=== PATIENT | male | born 1980 | race Caucasian/White ===

== ENCOUNTER 2024-12-29 13:21 | Emergency (ER) | payer OTHER, SELFPAY ==
--- NOTE | ~2024-12-29 | XR_ITS ---
EXAMINATION: XR HAND 3 OR MORE VIEWS LEFT HISTORY: Multiple foreign bodies COMPARISON: There are no prior studies available for comparison. FINDINGS: Three views of the left hand are submitted. Osseous mineralization is normal. There is no fracture or dislocation. The joint spaces are preserved. A faint punctate foreign body is seen within the soft tissues of the index finger at the level of the neck of the proximal phalanx. XR/XR hand LT min 3V IMPRESSION: Faint punctate foreign body in the soft tissues of the index finger at the level of the neck of the proximal phalanx. Electronically signed by: Mello Velazquez MD 12/29/2024 02:44 PM EDT
--- NOTE | 2024-12-29 13:29 | ED.SKABFB ---
HPI - Skin/Abscess/Foreign Bdy General Chief complaint: Wound/Laceration Stated complaint: L Hand Splinters Time Seen by Provider: 12/29/24 21:49 Source: patient Mode of arrival: ambulatory Limitations: no limitations History of Present Illness ED Provider: HPI narrative: Patient complaining of splinter in his left hand happened earlier today when he was working on the alex[employer] patient has remote to of the splinter but 1 still unable to remove Related Data Previous Rx's ?Medication ?Instructions ?Recorded amoxicillin 875 mg-potassium 1 tab PO BID #20 tabs 12/29/24 clavulanate 125 mg tablet Allergies Allergy/AdvReac Type Severity Reaction Status Date / Time oak Allergy Unknown Verified 12/29/24 13:32 holly Allergy Unknown Verified 12/29/24 13:32 thyme Allergy Unknown Verified 12/29/24 13:32 Review of Systems Review of Systems: Yes all other systems are reviewed and are negative PMFSH Social History Social History Advance Directives: No Advance Directives Information Provided: No Do you have a plan to hurt others: No Plan Physical Exam Vital Signs: Vital Signs: Last Vital Signs Temp 98.5 F 12/29/24 22:29 Pulse 90 12/29/24 22:29 Resp 20 12/29/24 22:29 BP 180/88 H 12/29/24 22:29 Pulse Ox 98 12/29/24 22:29 O2 Del Method Room Air 12/29/24 22:29 BMI result Body Mass Index 36.5 Appearance: Alert. Oriented X3. No acute distress. Eyes: no pallor or icterus ENT: Pharynx normal. Oral Mucosa moist Neck: Normal inspection. Neck supple. CVS: Normal heart rate and rhythm. Pulses normal. Respiratory: No respiratory distress. Equal air entry bilateral, no wheezing/rales/rhonchi Abd: soft, not tender Skin: Skin warm and dry. Normal skin color. Normal skin turgor. Extremities: Left hand at the base of thumb punctate wound with splinter inside Neuro: Oriented X 3. Course Course Course Narrative: This is an RME: Additional HPI, ROS, PE not included below will be deferred to primary provider. RME assessment and note performed by: Ayesha Romano PA-C This is a 89-[id number]-male, hx of HTN, who presents to the Er with complaints of L hand foreign body. Was building a deck, passing up a piece of lumbar and has multiple pressure treated wooden splinters in his left hand. He has multiple FBs in his left hand. Unsure of tdap status. Plan: xray, tdap Medications Administered Discontinued Medications Generic Name Dose Route Start Last Admin Trade Name Freq PRN Reason Stop Dose Admin Amoxicillin/Clavulanate Potassium 875 mg 12/29/24 22:17 12/29/24 22:23 Amoxicillin/Potassium Clav 875 Mg Tablet PO 12/29/24 22:18 875 mg ONCE ONE Administration Bacitracin 1 appl 12/29/24 22:17 12/29/24 22:23 Bacitracin Oint 0.9 Gm Packet TOPICAL 12/29/24 22:18 1 appl ONCE ONE Administration Protocol Diphtheria/Tetanus/Acell Pertussis 0.5 ml 12/29/24 13:32 12/29/24 20:52 Diphth,Pertus(Acell),Tet Adult 0.5 Ml Syringe IM 12/29/24 13:33 0.5 ml .ONCE ONE Administration Lidocaine HCl 5 ml 12/29/24 22:21 12/29/24 22:23 Lidocaine Hcl 1 % Mpf 5 Ml Vial INFILTRATI 12/29/24 22:22 5 ml ONCE ONE Administration Procedures Foreign Body Removal Time Out Performed: yes Site: left and hand Description of foreign body: other (Wood splinter) Technique: removal with forceps Confirmed by:: direct visualization Complications: none Post-procedure exam: awake, alert Neurovascular: normal distal pulse and normal capillary fill Discharge Plan Discharge Clinical Impression: Acute foreign body of left hand Patient Disposition: Home, Self-Care Instructions: Soft Tissue Foreign Body (ED) Additional Instructions: Local care as advised Antibiotic to avoid infection Follow with your PCP if any infection signs Prescriptions: New amoxicillin-pot clavulanate 875-125 mg tablet 1 tab PO BID Qty: 20 0RF Interventions: ED Discharge Assessment Last Done: 12/29/24 22:29 Discharge Date/Time: 12/29/24 22:29 Print Language: [place]raini
[2024-12-29 13:30] VITALS: BP 160/114; PULSE 111; RESP 17; TEMP 36.6; O2SAT 95; BMI 36.5
[2024-12-29] MEDS: Diphth,Pertus(ACell),Tet Adult 0.5 ML SYRINGE IM (20:52)
[2024-12-29] MEDS: Bacitracin Oint 0.9 GM PACKET 1 APPL TOPICAL (22:23)
[2024-12-29] MEDS: Lidocaine HCl 1 % MPF 5 ML VIAL INFILTRATI (22:23)
[2024-12-29] MEDS: Amoxicillin/Potassium Clav 875 MG TABLET PO (22:23)
[2024-12-29 22:26] VITALS: BP 180/88; PULSE 90; RESP 20; TEMP 36.9; O2SAT 98
[2024-12-29 22:29] VITALS: BP 180/88; PULSE 90; RESP 20; TEMP 36.9; O2SAT 98
== END 2024-12-29 22:29 | disposition home or self-care (01) ==
PROVIDERS: Emergency Provider Internal Medicine
DX: S61.442A Puncture wound with foreign body of left hand, initial encounter (principal); M79.642 Pain in left hand; X58.XXXA Exposure to other specified factors, initial encounter; Y93.9 Activity, unspecified; Y92.9 Unspecified place or not applicable; Y99.0 Civilian activity done for income or pay; Z23 Encounter for immunization
CPT/HCPCS: 10120; 73130; 90471; 90715; 99283; 99284; J2003

== ENCOUNTER → 2024-12-29 13:32 | Outpatient (BNV) | payer OTHER, MEDICAID, SELFPAY | PROVIDERS: Visit Provider Radiology Diagnostic Radiology | DX: S60.451A Superficial foreign body of left index finger, initial encounter (principal) | CPT/HCPCS: 73130 ==